=== PATIENT | male | born 1940 | race Caucasian/White ===

== ENCOUNTER → 2016-10-06 | Outpatient (CLI) | payer OTHER, MEDICARE | LOC: BMCIMAGING 15:46 | PROVIDERS: ATTEND Internal Medicine | DX: M51.36 Other intervertebral disc degeneration, lumbar region (principal); M46.96 Unspecified inflammatory spondylopathy, lumbar region; M46.97 Unspecified inflammatory spondylopathy, lumbosacral region; I70.0 Atherosclerosis of aorta ==

== ENCOUNTER → 2016-10-25 | Outpatient (CLI) | payer OTHER, MEDICARE | LOC: FIMAGING 15:25 | PROVIDERS: ATTEND Internal Medicine | DX: M48.06 Spinal stenosis, lumbar region (principal); M46.96 Unspecified inflammatory spondylopathy, lumbar region; M51.36 Other intervertebral disc degeneration, lumbar region ==

== ENCOUNTER → 2017-07-11 | Outpatient (CLI) | payer OTHER, MEDICARE | LOC: BHFA 15:30 | PROVIDERS: ATTEND Internal Medicine Cardiovascular Disease | DX: I73.9 Peripheral vascular disease, unspecified (principal) ==

== ENCOUNTER → 2018-01-07 | Outpatient (CLI) | payer OTHER, MEDICARE | LOC: BHFA 15:30 | PROVIDERS: ATTEND Internal Medicine Cardiovascular Disease | DX: R06.02 Shortness of breath (principal); R60.9 Edema, unspecified; I25.10 Atherosclerotic heart disease of native coronary artery without angina pectoris; I11.9 Hypertensive heart disease without heart failure; I43 Cardiomyopathy in diseases classified elsewhere ==

== ENCOUNTER 2018-02-20 07:30 | Inpatient (IN) | payer OTHER, MEDICARE ==
[2018-05-06] MEDS ORDERED: ceFAZolin 2 GM/DEXTROSE 100 ML IV ONE (09:40)
[2018-05-06] MEDS ORDERED: ACETAMINOPHEN 500 MG TAB PO ONE (09:40)
[2018-05-06] MEDS ORDERED: LR 1,000 ML IV ONE (09:40)
[2018-05-06] MEDS ORDERED: GABAPENTIN 300 MG CAP PO ONE (09:40)
[2018-05-06] MEDS ORDERED: DEXMEDETOMIDINE HCL 400 MCG in NS 100 ML IV SCH (10:00)
--- NOTE | 2018-05-06 10:29 | PDANEPAE ---
ANE History of Present Illness 78 y/o male with multiple medical problems here for back surgery due to back pain. ANE Past Medical History - Cardiovascular History Hx Hypertension: Yes Hx Arrhythmias: Yes Hx Chest Pain: Yes Hx Coronary Artery / Peripheral Vascular Disease: Yes Hx CHF / Valvular Disease: Yes Hx Palpitations: No Cardiovascular History Comment: CAD, multiple stents, in-stent thrombosis, restented now on Plavix. Hx of a-fib, failed ablation, paroxysmal. high cholesterol - Pulmonary History Hx COPD: No Hx Asthma/Reactive Airway Disease: No Hx Recent Upper Respiratory Infection: No Hx Oxygen in Use at Home: No Hx Sleep Apnea: Yes Sleep Apnea Screening Result - Last Documented: Positive Pulmonary History Comment: KEVIN positive, uses Cpap. Longtime cigar smoker. Quit for surgery. - Neurologic History Hx Cerebrovascular Accident: Yes Hx Seizures: No Neurologic History Comment: Hx of TIA, affected left hand. 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 Spinal stenosis - Endocrine History Hx Diabetes: No Obesity: yes, mild - Renal History Hx Renal Disorders: Yes Renal History Comment: overactive bladder - Liver History Hx Hepatic Disorders: No - Neurological & Psychiatric Hx Hx Neurological and Psychiatric Disorders: No - Cancer History Hx Cancer: No - Congenital Disorder History Hx Congenital Disorders: No - GI History Hx Gastrointestinal Disorders: Yes Gastrointestinal History Comment: GERD - Other Health History Other Health History: wears hearing aids. wears glasses. hx of psoriasis, no outbreak currently. takes cialis for erectile dysfunction. pain in bilat knees , L>R - Chronic Pain History Chronic Pain: Yes (bilat knees, L>R) - Surgical History Prior Surgeries: polyp removal near stomach. cardiac stenting ANE Review of Systems Review of Systems: - Exercise capacity METS (RN): 2 METS ANE Patient History - Allergies Allergies/Adverse Reactions: levofloxacin [From Levaquin] Allergy (Verified 05/02/18 13:27) issues with achilles tendon nifedipine [Nifedipine] Allergy (Verified 05/02/18 13:27) skin peeling, sloughing - Home Medications Home Medications: Apixaban [Eliquis] 5 mg PO BID 12/01/10 [Last Taken 04/29/18] Carbidopa/Levodopa 25/100Mg [Sinemet 25/100 MG (*)] 1 tab PO TIDMEAL 12/01/10 [ Last Taken 05/06/18] Clopidogrel Bisulfate [Plavix (*)] 75 mg PO HS 12/01/10 [Last Taken 04/29/18] Losartan Potassium [Cozaar 50 mg (*)] 50 mg PO DAILY 12/01/10 [Last Taken ] Mirabegron [Myrbetriq] 50 mg PO DAILY 12/01/10 [Last Taken 05/05/18] Nitroglycerin [Nitrostat 0.4 mg (*)] 0.4 mg SL Q5M PRN 12/01/10 [Last Taken Unknown] Rosuvastatin Calcium [Crestor 40mg (*)] 40 mg PO HS 12/01/10 [Last Taken ] Ferrous Sulfate [Ferrous Sulf 325 MG (*)] 325 mg PO DAILY 06/28/16 [Last Taken 04/29/18] Glucosamine/Chondroitin [Glucosamine/Chondroitin (*)] 1 each PO BID 06/28/16 [ Last Taken 04/29/18] Pantoprazole Sodium [Protonix 40mg (*)] 40 mg PO DAILY 06/28/16 [Last Taken ] Fluticasone Nasal [Flonase Nasal [place] (RX)] 2 sprays NASAL DAILY 01/22/18 [ Last Taken 05/05/18] Furosemide [Lasix 40 MG (*)] 40 mg PO DAILY 01/22/18 [Last Taken 05/05/18] Metoprolol Tartrate [Lopressor 50 mg (*)] 50 mg PO HS 01/22/18 [Last Taken 05/05] Rivastigmine Tartrate [Rivastigmine] 1.5 mg PO BIDMEAL 01/22/18 [Last Taken Unknown] Ascorbic Acid [Vitamin C 500 mg (*)] 500 mg PO DAILY 05/02/18 [Last Taken ] Docusate Sodium [Colace 100 MG (*)] 400 mg PO DAILY 05/02/18 [Last Taken Unknown ] Herbals/Supplements -Info Only 1 each PO DAILY 05/02/18 [Last Taken 04/29/18] [place]-3 Fatty Acids [Fish Oil 1000 mg (*)] 1,000 mg PO HS 05/02/18 [Last Taken 04/29/18] Tadalafil [Cialis] 2.5 mg PO DAILY 05/02/18 [Last Taken 05/04/18] Testosterone IM [Testosterone 100mg/ml IM inj (*)] 300 mg IM Q21D 05/02/18 [ Last Taken 04/29/18] - Smoking Hx Smoking Status: Former smoker - Family Anes Hx Family Hx Anesthesia Complications: none ANE Labs/Vital Signs - Vital Signs Height: 172.72 cm Weight: 98.883 kg ANE Physical Exam - Airway Neck exam: decreased ROM Mallampati Score: Class 3 Mouth exam: poor dentition - Pulmonary Pulmonary: clear to auscultation - Cardiovascular Cardiovascular: regular rate and rhythym - ASA Status ASA Status: IV ANE Anesthesia Plan Lines/Monitors: arterial line
--- NOTE | 2018-05-06 11:35 | PDHPUP ---
History & Physical Update H&P update statement: This history and physical update is based on an assessment of the patient which was completed after admission or registration (within 24 hours), but prior to the surgery/procedure. H&P update: H&P reviewed & patient examined, no change in patient's condition since H&P completed
[2018-05-06] MEDS ORDERED: CHLORHEXIDINE GLUC HIBICLENS 118 ML BTL TP ONE (12:12)
[2018-05-06] MEDS ORDERED: BUPIVACAINE 0.25% 30 ML SDV ONE ×2 (12:13→12:41)
[2018-05-06] MEDS ORDERED: EPINEPHrine 1 MG/ML INJ ONE (12:13)
[2018-05-06] MEDS ORDERED: BACITRACIN 50,000 UNITS/10 ML SYR IRR ONE ×2 (12:13→12:14)
[2018-05-06] MEDS ORDERED: THROMBIN (BOVINE) 20,000 UNIT VIAL TP ONE (12:23)
[2018-05-06] MEDS ORDERED: PROPOFOL/EMULSION 500 MG/50 ML BOTTLE IV ONE (12:24)
[2018-05-06] MEDS ORDERED: fentaNYL 100 MCG/2 ML INJ ONE ×2 (12:25→17:47)
[2018-05-06] MEDS ORDERED: PROPOFOL 200 MG/20 ML VIAL ONE ×2 (12:40→15:30)
[2018-05-06] MEDS ORDERED: oxyCODONE IR 5 MG TAB PO PRN (13:26)
[2018-05-06] MEDS ORDERED: LACTULOSE 20 GM/30 ML UDCUP PO PRN (13:26)
[2018-05-06] MEDS ORDERED: BISACODYL 10 MG SUPP PR PRN (13:26)
[2018-05-06] MEDS ORDERED: diphenhydrAMINE 25 MG CAP PO PRN (13:26)
[2018-05-06] MEDS ORDERED: MAGNESIUM HYDROXIDE 30 ML UDCUP PO PRN (13:26)
[2018-05-06] MEDS ORDERED: ONDANSETRON 4 MG/2 ML VIAL IVP PRN (13:26)
[2018-05-06] MEDS ORDERED: ONDANSETRON DISINTEGRATING 4 MG TAB PO PRN (13:26)
[2018-05-06] MEDS ORDERED: TESTOSTERONE IM 100 MG/ML SYRINGE IM SCH (13:45)
[2018-05-06] MEDS ORDERED: LABETALOL HCL 5 MG/ML 20 ML MDV IVP PRN (15:59)
[2018-05-06] MEDS ORDERED: LR 500 ML IV PRN (15:59)
[2018-05-06] MEDS ORDERED: NALOXONE HCL 0.4 MG/ML INJ IVP PRN (15:59)
[2018-05-06] MEDS ORDERED: PROMETHAZINE HCL 25 MG/ML INJ IVP PRN (15:59)
[2018-05-06] MEDS ORDERED: MEPERIDINE 25 MG/0.5 ML AMP IVP PRN (15:59)
--- NOTE | 2018-05-06 17:01 | POSTOPPROG ---
Post Op Note Date of Operation: 05/06/18 Surgeon: Hector Grijalva Dry House Tender: Hailey Nagel NP Anesthesiologist: Dr Manley Anesthesia: GET(General Endotracheal) Pre-op Diagnosis: Lumbar stenosis Procedure: L4-5 TLIF Inf/Abcess present in the surg proc area at time of surgery?: No Depth: Deep Incisional (Fascial) EBL: 100-500 Total fluids administered: see anesthesia Complications: none Drains: George Love Date of Surgery: 05/06/18 Post Op Day: 0 Assessment/Plan: Assessment: 78 yr old M s/p L4-5 TLIF for lower back pain and left>right leg pain Plan: -Admit Med surg -Hospitalist consulted to help with medical management during hospital stay -PT/OT -Post op xrays in am -Licensed Land Surveyor to fit with lumbar brace -Ok to get oob prior to arrival of brace -JHON bulb suction -Call with questions/concerns Subjective: waking up in pacu Objective: waking up in pacu no facial droop MINER x4 5/5 BUE, BLE Sensation intact to light touch BLE JHON patent Dressing CDI Appropriate Neuro Check Frequency Ordered: Yes
--- NOTE | 2018-05-06 17:09 | POSTANESTH ---
Post Anesthetic Evaluation Respiratory Status: Normal, Stable Level of Consciousness/Mental Status: Can Participate in Eval Pain Control: Adequate, Prn Tx Ordered Nausea/Vomiting Control: Adequate, Prn Tx Ordered Complications Possibly Related to Anesthesia: None Noted
[2018-05-06] MEDS ORDERED: METHOCARBAMOL 750 MG TAB ONE (17:51)
[2018-05-06] MEDS: fentaNYL 100 MCG/2 ML INJ IVP PRN ×2 (17:55→18:13)
--- NOTE | 2018-05-06 18:10 | GOP ---
DATE OF OPERATION: 05/06/2018 SURGEON: Darnell Grijalva MD NEUROSURGEON: Darnell Grijalva MD DIRECTOR FINANCIAL ANALYSIS: Hailey Nagel, nurse practitioner PREOPERATIVE DIAGNOSIS: Lumbar spondylolisthesis with stenosis L4-5. POSTOPERATIVE DIAGNOSIS: Lumbar spondylolisthesis with stenosis L4-5. PROCEDURE PERFORMED: L4-5 intervertebral arthrodesis and posterolateral arthrodesis with decompressi on bilaterally (18963), posterior nonsegmental instrumentation across a single interspace L4-5 (65935 ), spinal stereotactic, microscope, same incision bone graft harvest, placement of biomechanical inte rvertebral device L4-5 (09673). FINDINGS: Are consistent with the diagnosis. ESTIMATED BLOOD LOSS: 150 cc. INDICATIONS: The patient is an elderly gentleman who has had a long history of symptoms in his low b ack, radiating down both legs, with the left being worse than the right, and his MRI demonstrated spo ndylolisthesis at L4-5 and severe stenosis at that level. I suggested a single-level arthrodesis and fusion. The risk of adjacent segment disease, nerve injury, spinal fluid leak, continued symptoms, pseudoarthrosis, nerve injury, and failure to improve was discussed. He knew the risks and he did wa nt to proceed. He had been a smoker prior to surgery and he was able to successfully quit smoking pr ior to surgery and was warned about the risks of smoking following surgery. We encouraged him to not smoke for at least this year after the surgery to try to improve his chances of javier union. DESCRIPTION OF PROCEDURE: The patient was taken to the operating room, placed in a supine position. General anesthesia was begun. He was flipped prone onto the George table. Care was taken to pad a ll points of contact. His back was sterilely prepped and draped. Before we began the surgery, shaylee er, and in fact, before draping, we sterilely prepped him, but before draping the patient, the anesth esiologist was unhappy with the tidal volume she was getting, so we elected to flip him back onto his hospital bed to ensure the ET tube was in good position. It did appear to be in good position and t his maneuver seemed to solve the problem. He was then positioned back on the operating room table on ce again. Care was taken to pad all points of contact, and this time, we did not have a problem with our tidal volume. He was sterilely prepped and draped. We made a midline incision, it was about 7 cm in length. He was a very large man. The subcutaneous tissue was dissected using Bovie cautery down through the fascia and a subperiosteal dissection was m glory down the L4-5 lamina. Self-retaining retractor was placed. A localizing x-ray was taken. We de nuded the L4-5 facet joints. We attached the Stealth reference frame to the L4 spinous process. We performed an O-arm spin and using frameless Stealth stereotaxy, we placed pedicle screws bilaterally at L4 and L5. They were in excellent position. We confirmed their position with another O-arm spin. They all stimulated at acceptable levels. We took a 35 mm eladia on the right and a 40 mm eladia on the left, distracted only slightly at L4-5 and go t good distraction. We then final tightened the cap screws according to company specification, and t hen removed all the soft tissue of the bone from the L4-5 spinous processes, and then harvested the L 4 spinous process and lamina for autologous grafting purposes. Under the operating microscope, we pe rformed bilateral decompression at L4-5. There was very severe stenosis and it was stuck to his nerv e roots on each side. We took care to carefully remove the hypertrophic facets and their areas of ad hesion to the thecal sac, and we got a great decompression. There was an hourglass appearance of the thecal sac at the level of the disk. We had a wonderful decompression. We swept the L5 nerve on the left side medially and removed the disk and the cartilaginous endplates completely at the L4-5 intervertebral space. We then sized and chose a 7 x 28 mm expandable device. We packed bone autograft into the disk space at L4-5, followed by the device, and it was expanded un chani fluoroscopic guidance. We put 1 mg of BMP in the device, 1 mg posterolaterally. We then placed a subfascial drain, and then closed the incision in multiple layers using Vicryl sutures. Steri-Stri ps were applied to skin. The patient was reversed from anesthesia, extubated, and transferred to recovery room in stable condi tion. There were no complications. COMPLICATIONS: None. INSTRUMENTATION USED: Medtronic 5.5 mm Solera pedicle screws with a titanium eladia, and we used an exp andable Elevate 7 x 28 mm cage at L4-5 and 2 mg of bone morphogenic protein. /[id number]/MODL
[2018-05-06] MEDS: METHOCARBAMOL 750 MG TAB PO PRN (18:12)
[2018-05-06] MEDS: NS 1,000 ML IV SCH (18:51)
--- NOTE | 2018-05-06 21:06 | PDHOSCONS ---
History and Physical - Chief Complaint post op L4-L5 fusion - History of Present Illness This is a consult at request of Dr. Carlos Grijalva for medical management and evaluation of chronic medical issues. Patient is a 78 yo M with PMH of CAD, KEVIN, CVA and Binswanger syndrome with chronic gait instability admitted for L4-L5 fusion for lumbar spondylolisthesis and lumbar stenosis. Patient seen in the post operative setting and states he is doing well now but was having issues with delusions in the post op setting. His pain is largely controlled. He notes that he is hungry but otherwise has no complaints. He feels he is breathing well, no chest pain. History Information - Allergies/Home Medication List Allergies/Adverse Reactions: levofloxacin [From Levaquin] Allergy (Verified 05/02/18 13:27) issues with achilles tendon nifedipine [Nifedipine] Allergy (Verified 05/02/18 13:27) skin peeling, sloughing Home Medications: Apixaban [Eliquis] 5 mg PO BID 12/01/10 [Last Taken 04/29/18] Carbidopa/Levodopa 25/100Mg [Sinemet 25/100 MG (*)] 1 tab PO TIDMEAL 12/01/10 [ Last Taken 05/06/18] Clopidogrel Bisulfate [Plavix (*)] 75 mg PO HS 12/01/10 [Last Taken 04/29/18] Losartan Potassium [Cozaar 50 mg (*)] 50 mg PO DAILY 12/01/10 [Last Taken ] Mirabegron [Myrbetriq] 50 mg PO DAILY 12/01/10 [Last Taken 05/05/18] Nitroglycerin [Nitrostat 0.4 mg (*)] 0.4 mg SL Q5M PRN 12/01/10 [Last Taken Unknown] Rosuvastatin Calcium [Crestor 40mg (*)] 40 mg PO HS 12/01/10 [Last Taken ] Ferrous Sulfate [Ferrous Sulf 325 MG (*)] 325 mg PO DAILY 06/28/16 [Last Taken 04/29/18] Glucosamine/Chondroitin [Glucosamine/Chondroitin (*)] 1 each PO BID 06/28/16 [ Last Taken 04/29/18] Pantoprazole Sodium [Protonix 40mg (*)] 40 mg PO DAILY 06/28/16 [Last Taken ] Fluticasone Nasal [Flonase Nasal [place] (RX)] 2 sprays NASAL DAILY 01/22/18 [ Last Taken 05/05/18] Furosemide [Lasix 40 MG (*)] 40 mg PO DAILY 01/22/18 [Last Taken 05/05/18] Metoprolol Tartrate [Lopressor 50 mg (*)] 50 mg PO HS 01/22/18 [Last Taken 05/05] Rivastigmine Tartrate [Rivastigmine] 1.5 mg PO BIDMEAL 01/22/18 [Last Taken Unknown] Ascorbic Acid [Vitamin C 500 mg (*)] 500 mg PO DAILY 05/02/18 [Last Taken ] Docusate Sodium [Colace 100 MG (*)] 400 mg PO DAILY 05/02/18 [Last Taken Unknown ] Herbals/Supplements -Info Only 1 each PO DAILY 05/02/18 [Last Taken 04/29/18] [place]-3 Fatty Acids [Fish Oil 1000 mg (*)] 1,000 mg PO HS 05/02/18 [Last Taken 04/29/18] Tadalafil [Cialis] 2.5 mg PO DAILY 05/02/18 [Last Taken 05/04/18] Testosterone IM [Testosterone 100mg/ml IM inj (*)] 300 mg IM Q21D 05/02/18 [ Last Taken 04/29/18] I have personally reviewed and updated: family history, medical history, social history, surgical history - Past Medical History atrial fibrillation, coronary artery disease, CHF, CVA, GERD, hypertension, hyperlipidemia Additional medical history: PAD. chronic venous insufficiency. Binswanger syndrome with gait instability. psoriasis. KEVIN - Surgical History Reports: spinal surgery, coronary stent Additional surgical history: lipoma surgery - Family History Positive for: non-pertinent - Social History Smoking Status: Former smoker Alcohol Use: Rarely Drug Use: None Review of Systems Review of Systems: ROS: 10pt was reviewed & negative except for what was stated in HPI & below Physical Exam Physical Exam: Temp Pulse Resp BP Pulse Ox 36.7 C 84 18 100/50 L 95 05/06/18 20:51 05/06/18 20:51 05/06/18 20:51 05/06/18 20:51 05/06/18 20:51 O2 (L/minute) 2 Constitutional: no apparent distress, appears nourished Eyes: PERRL, anicteric sclera Ears, Nose, Mouth, Throat: moist mucous membranes, hearing normal Cardiovascular: regular rate and rhythym, no murmur, rub, or gallop, No edema Respiratory: no respiratory distress, no rales or rhonchi, clear to auscultation Gastrointestinal: normoactive bowel sounds, soft, non-tender abdomen Genitourinary: no bladder tenderness Skin: warm, normal color Musculoskeletal: full muscle strength Neurologic: AAOx3 Psychiatric: interacting appropriately, not anxious, not encephalopathic Assessment & Plan Assessment: 78 yo M s/p L4-L5 fusion for lumbar spondylolisthesis/lumbar stenosis # s/p L4-L5 fusion: patient doing well in post op setting. pt/ot to be involved. # post operative delirium: will monitor but seems to have resolved, likely due to anesthetic effect # CAD: with hx of multiple prior stents, was seen by cardiology pre operatively , has no current complaints to suggest active issues, will resume home medications including asa when cleared by neurosurgery. cardiology was ok with those being held perioperatively # Binswanger syndrome: with chronic gait instability and patient using a wheelchair significantly pre op, pt/ot to be involved # chronic medical issues: htn, hld, kevin, hx of cva, a fib--no current issues, will monitor # IP status, patient new to my care, old records reviewed and summarized as above Medicine will continue to follow while patient is in house, thank you for the consultation.
[2018-05-06] MEDS: ceFAZolin 2 GM/DEXTROSE 100 ML IV SCH (21:34)
[2018-05-06] MEDS: ACETAMINOPHEN 500 MG TAB PO SCH ×2 (21:34→23:16)
[2018-05-06] MEDS: SENNOSIDES/DOCUSATE SODIUM TAB PO SCH (21:34)
[2018-05-06] MEDS: FAMOTIDINE 20 MG TAB PO SCH (21:34)
[2018-05-06] MEDS: METOPROLOL TARTRATE 50 MG TAB PO SCH (21:34)
[2018-05-06] MEDS: ROSUVASTATIN CALCIUM 40 MG TAB PO SCH (21:34)
[2018-05-06] MEDS: RIVASTIGMINE TARTRATE 1.5 MG CAP PO SCH (23:17)
[2018-05-06] MEDS: CARBIDOPA/LEVODOPA 25 MG/100 MG TAB PO SCH (23:17)
[2018-05-07 05:38] LABS: PLATELET COUNT 226 10^3/uL (150-400)
[2018-05-07] MEDS: ceFAZolin 2 GM/DEXTROSE 100 ML IV SCH (05:46)
[2018-05-07] MEDS: ACETAMINOPHEN 500 MG TAB PO SCH ×3 (05:46→21:32)
[2018-05-07] MEDS: DOCUSATE SODIUM 100 MG CAP PO SCH (08:29)
[2018-05-07] MEDS: FUROSEMIDE 40 MG TAB PO SCH (08:30)
[2018-05-07] MEDS: PANTOPRAZOLE SODIUM 40 MG TAB PO SCH (08:31)
[2018-05-07] MEDS: LOSARTAN POTASSIUM 50 MG TAB PO SCH (08:31)
[2018-05-07] MEDS: FERROUS SULFATE 325 MG TAB PO SCH (08:32)
[2018-05-07] MEDS: SENNOSIDES/DOCUSATE SODIUM TAB PO SCH ×2 (08:32→21:32)
[2018-05-07] MEDS: FAMOTIDINE 20 MG TAB PO SCH ×2 (08:32→21:32)
[2018-05-07] MEDS: POLYETHYLENE GLYCOL 3350 17 GM PKT PO PRN (08:33)
--- NOTE | 2018-05-07 08:38 | NEUSURGPN ---
Assessment/Plan: Assessment: 78 yr old M s/p L4-5 TLIF for lower back pain and left>right leg pain POD1 Plan: -Hospitalist consulted to help with medical management during hospital stay -PT/OT -Pulmonary toilet, Encourage IS -Post op xrays pending -Emergency Room Technician to fit with lumbar brace -Ok to get oob with brace -JHON bulb suction, will d/c today -Call with questions/concerns Subjective: low back pain, right leg stiffness Objective: waking up in pacu MINER x4 5/5 BUE, BLE Sensation intact to light touch BLE JHON serosanguineous Dressing CDI Catheter Insertion Date: 05/06/18 - Physician Discussed Patient with DrBirgit: Rudi Neurosurgery Physical Exam - Vitals, I&O, Labs I and O 05/06/18 05/07/18 05/08/18 05:59 05:59 05:59 Intake Total 3345 Output Total 820 Balance 2525 Weight 98.883 kg 98.883 kg Intake: Oral (ml) 975 IV Intake (ml) 1500 IV Infused (ml) 870 Ns 1,000 ml @ 75 mls/hr 650 IV CONT BILLY Rx#: [id number] ceFAZolin 2 GM/DEXTROSE 220 100 ml @ 200 mls/hr IV Q8H BILLY Rx#:[id number] Output: Urine (ml) 450 Catheter 450 Estimated Blood Loss (ml) 150 JHON Drain Output (ml) 220 Back George Love 220 Vital Signs Temp Pulse Resp BP Pulse Ox 37.0 C 69 12 95/65 L 95 05/07/18 07:30 05/07/18 07:30 05/07/18 07:30 05/07/18 07:30 05/07/18 07:30 Laboratory Results 05/07/18 05:10 05/07/18 05:10 ICD10 Worksheet Patient Problems: Problems Problem Status Onset Atherosclerotic heart disease of [place] coronary artery without angina pectoris Acute Atrial fibrillation Acute Bradycardia Acute
[2018-05-07] MEDS: RIVASTIGMINE TARTRATE 1.5 MG CAP PO SCH ×2 (08:45→18:03)
[2018-05-07] MEDS: FLUTICASONE NASAL 120 SPRAYS/16 GM MDI NS SCH (08:46)
[2018-05-07] MEDS: CARBIDOPA/LEVODOPA 25 MG/100 MG TAB PO SCH ×3 (08:46→18:03)
[2018-05-07] MEDS: NS 1,000 ML IV SCH (08:48)
[2018-05-07] MEDS: METHOCARBAMOL 750 MG TAB PO PRN ×2 (09:13→14:03)
--- NOTE | 2018-05-07 11:35 | PDMN ---
Medical Necessity Medical necessity: 78 [place] 41988[place] [facility] [place], [place] Only
--- NOTE | 2018-05-07 12:54 | HOSPPROG ---
Hospitalist Progress Note Assessment/Plan: 78 yo M s/p L4-L5 fusion for lumbar spondylolisthesis/lumbar stenosis. First encounter, chart reviewed. D/W CM. # s/p L4-L5 fusion: patient doing well in post op setting pt/ot to be involved decreased strength and mobility # post operative delirium: resolved will monitor likely due to anesthetic effect # CAD: with hx of multiple prior stents was seen by cardiology pre operatively has no current complaints to suggest active issues will resume home medications including asa when ok with neurosurgery cardiology was ok with those being held perioperatively # Binswanger syndrome: with chronic gait instability patient using a wheelchair significantly pre op pt/ot to be involved rec SNF # chronic medical issues: htn, hld, jose, hx of cva, a fib--no current issues, will monitor # IP status, patient new to my care, old records reviewed and summarized as above Medicine will continue to follow while patient is in house, thank you for the consultation. Rec SNF rehab at time of DC pt not safe to mobilize await PT/OT notes Subjective: Up in bed. Still having some back pain. at bedside. Objective: Vital Signs Temp Pulse Resp BP Pulse Ox 37.0 C 60 12 104/55 L 96 05/07/18 11:29 05/07/18 11:29 05/07/18 11:29 05/07/18 11:29 05/07/18 11:29 Laboratory Results 05/07/18 05:10 05/07/18 05:10 05/06/18 05/07/18 05/08/18 05:59 05:59 05:59 Intake Total 3345 200 Output Total 820 25 Balance 2525 175 - Physical Exam Constitutional: appears nourished, obese, uncomfortable Eyes: PERRL, anicteric sclera, EOMI Ears, Nose, Mouth, Throat: moist mucous membranes, hearing normal, ears appear normal Cardiovascular: irregularly irregular, No JVD, No tachycardia, No edema Respiratory: no respiratory distress, no rales or rhonchi, reduced air movement Gastrointestinal: normoactive bowel sounds, No tenderness, No ascites Skin: warm, normal color, No mottled Musculoskeletal: pain with ROM, muscular tenderness, abnormal gait, generalized weakness Neurologic: AAOx3 Psychiatric: not anxious, not encephalopathic, thought process linear, poor judgement ICD10 Worksheet Patient Problems: Problems Problem Status Onset Atherosclerotic heart disease of [place] coronary artery without angina pectoris Acute Atrial fibrillation Acute Bradycardia Acute
[2018-05-07] MEDS: Tadalafil [Cialis] 2.5 MG PO SCH (13:58)
[2018-05-07] MEDS: Mirabegron [Myrbetriq] 50 MG PO SCH (14:00)
--- NOTE | 2018-05-07 14:45 | ASMTCMCOM ---
CM Note CM Note Notes: Pt had planned surgery for lumbar stenosis and DJD. PT/OT evals pending. Pt was pre-arranged with [facility] but pt thinks he may want SNF d/c. Spoke with pt and , they request a referral to [facility] SNF, referral sent in [employer]. CM to follow. Date Signed: 05/07/2018 02:44 PM Electronically Signed By:MAINOR Green
[2018-05-07] MEDS ORDERED: NS 500 ML IV ONE (17:32)
[2018-05-07] MEDS: METOPROLOL TARTRATE 50 MG TAB PO SCH (21:32)
[2018-05-07] MEDS: ROSUVASTATIN CALCIUM 40 MG TAB PO SCH (21:32)
[2018-05-08] MEDS: ACETAMINOPHEN 500 MG TAB PO SCH ×3 (05:48→21:08)
--- NOTE | 2018-05-08 07:43 | SOAPPROG ---
SOAP Progress Note Assessment/Plan: Assessment: 78 yo male POD #2 sp L4/5 TLIF Doing "better" today. Plan: LSO when OOB Continue JHON Pt/OT Rehab eval 05/08/18 07:40 Subjective: sitting up eating breakfast. Pain controlled. He thinks his legs feel better. No new issues Objective: Vital Signs Temp Pulse Resp BP Pulse Ox 37.0 C 53 L 17 133/65 H 94 05/08/18 07:36 05/08/18 07:36 05/08/18 07:36 05/08/18 07:36 05/08/18 07:36 Laboratory Results 05/07/18 05:10 05/07/18 05:10 05/07/18 05/08/18 05/09/18 05:59 05:59 05:59 Intake Total 3345 400 350 Output Total 820 1425 Balance 2525 -1025 350 Dressing : CDI JHON: 25 ml Neuro: MINER, sens +LT ambulatory in LSO Post op xrays show well positioned hardware ICD10 Worksheet Patient Problems: Problems Problem Status Onset Atherosclerotic heart disease of [place] coronary artery without angina pectoris Acute Atrial fibrillation Acute Bradycardia Acute
[2018-05-08] MEDS: PANTOPRAZOLE SODIUM 40 MG TAB PO SCH (08:41)
[2018-05-08] MEDS: RIVASTIGMINE TARTRATE 1.5 MG CAP PO SCH ×2 (08:42→18:16)
[2018-05-08] MEDS: FUROSEMIDE 40 MG TAB PO SCH (08:42)
[2018-05-08] MEDS: FERROUS SULFATE 325 MG TAB PO SCH (08:43)
[2018-05-08] MEDS: FAMOTIDINE 20 MG TAB PO SCH ×2 (08:43→22:33)
[2018-05-08] MEDS: CARBIDOPA/LEVODOPA 25 MG/100 MG TAB PO SCH ×3 (08:43→18:16)
[2018-05-08] MEDS: DOCUSATE SODIUM 100 MG CAP PO SCH (08:52)
[2018-05-08] MEDS: SENNOSIDES/DOCUSATE SODIUM TAB PO SCH ×2 (08:53→21:05)
[2018-05-08] MEDS: FLUTICASONE NASAL 120 SPRAYS/16 GM MDI NS SCH (09:01)
[2018-05-08] MEDS: LOSARTAN POTASSIUM 50 MG TAB PO SCH (09:03)
[2018-05-08] MEDS: Mirabegron [Myrbetriq] 50 MG PO SCH ×2 (09:03→15:20)
[2018-05-08] MEDS: Tadalafil [Cialis] 2.5 MG PO SCH (09:04)
--- NOTE | 2018-05-08 11:49 | HOSPPROG ---
Hospitalist Progress Note Assessment/Plan: 78 yo M s/p L4-L5 fusion for lumbar spondylolisthesis/lumbar stenosis. D/W CM. # s/p L4-L5 fusion: patient doing ok in post op setting pt/ot decreased strength and mobility # post operative delirium: resolved will monitor likely due to anesthetic effect # CAD: with hx of multiple prior stents was seen by cardiology pre operatively has no current complaints to suggest active issues will resume home medications including asa when ok with neurosurgery cardiology was ok with those being held perioperatively # Binswanger syndrome: with chronic gait instability patient using a wheelchair significantly pre op pt/ot to be involved rec SNF # chronic medical issues: htn, hld, jose, hx of cva, a fib--no current issues, will monitor #Hypotension better responded to fluid meds held this morning #Hypoxemia multifactorial recently stopped smoking cigars partial fluid lasix given follow IS # IP status, Medicine will continue to follow while patient is in house, thank you for the consultation. Rec SNF rehab at time of DC pt not safe to mobilize Subjective: Up in the chair. Still having pain. Feels ok. Objective: Vital Signs Temp Pulse Resp BP Pulse Ox 37.0 C 53 L 17 133/65 H 94 05/08/18 07:36 05/08/18 07:36 05/08/18 07:36 05/08/18 07:36 05/08/18 07:36 Laboratory Results 05/07/18 05:10 05/07/18 05:10 05/07/18 05/08/18 05/09/18 05:59 05:59 05:59 Intake Total 3345 400 350 Output Total 820 1425 100 Balance 2525 -1025 250 - Physical Exam Constitutional: appears nourished, obese Eyes: PERRL, anicteric sclera Ears, Nose, Mouth, Throat: moist mucous membranes, hearing normal Cardiovascular: No JVD, No edema Respiratory: no respiratory distress, reduced air movement, rhonchi Gastrointestinal: No tenderness, No ascites Skin: warm, normal color Musculoskeletal: pain with ROM, muscular tenderness, generalized weakness Neurologic: AAOx3 Psychiatric: interacting appropriately, not anxious, not encephalopathic ICD10 Worksheet Patient Problems: Problems Problem Status Onset Atherosclerotic heart disease of [place] coronary artery without angina pectoris Acute Atrial fibrillation Acute Bradycardia Acute
[2018-05-08] MEDS: METHOCARBAMOL 750 MG TAB PO PRN (11:51)
--- NOTE | 2018-05-08 15:12 | ASMTCMCOM ---
CM Note CM Note Notes: Spoke with pt and , they do not want to consider [facility] inpatient rehab and want d/c to [facility]. D/c plan of care: [facility] SNF when medically stable. Date Signed: 05/08/2018 03:11 PM Electronically Signed By:MAINOR Green
[2018-05-08] MEDS: ROSUVASTATIN CALCIUM 40 MG TAB PO SCH (21:05)
[2018-05-08] MEDS: METOPROLOL TARTRATE 50 MG TAB PO SCH (21:06)
[2018-05-08] MEDS: POLYETHYLENE GLYCOL 3350 17 GM PKT PO PRN (21:09)
[2018-05-09] MEDS: ACETAMINOPHEN 500 MG TAB PO SCH (05:14)
--- NOTE | 2018-05-09 08:04 | NEUSURGPN ---
Assessment/Plan: 78 yo male POD #3 sp L4/5 TLIF Plan: LSO when OOB JHON drain is out Pt/OT TEDs, SCDs, lovenox DC to SNF today Pt seen and d/w Dr Grijalva Call NS with any issues Subjective: Pt resting in bed, states he is ready to go to SNF today. Thinks he is making some progress. Objective: AAOx3 NAD VSS MAEx4 Motor 5/5 BLE +LT Urinary Catheter in Place: No Catheter Insertion Date: 05/06/18 - Physician Discussed Patient with : Rudi Patient Seen by : Rudi Neurosurgery Physical Exam - Vitals, I&O, Labs I and O 05/08/18 05/09/18 05/10/18 05:59 05:59 05:59 Intake Total 400 850 Output Total 1425 1475 Balance -1025 -625 Weight 98.883 kg Intake: Oral (ml) 400 850 Output: Urine (ml) 1400 1475 Bedside Commode 125 Urinal 1400 1350 JHON Drain Output (ml) 25 Back George Love 25 Other: Intake Quantity Yes Yes Sufficient Number of Voids Incontinence 2 Urinal 2 2 Number of Stools Bedside Commode 1 Bladder Scan Volume (ml) Toilet 100 Vital Signs Temp Pulse Resp BP Pulse Ox 37.5 C 73 19 161/76 H 93 05/09/18 07:52 05/09/18 07:52 05/09/18 07:52 05/09/18 07:52 05/09/18 07:52 Laboratory Results 05/07/18 05:10 05/07/18 05:10 ICD10 Worksheet Patient Problems: Problems Problem Status Onset Atherosclerotic heart disease of [place] coronary artery without angina pectoris Acute Atrial fibrillation Acute Bradycardia Acute
[2018-05-09 08:08] VITALS: BP 142/70
--- NOTE | 2018-05-09 08:10 | PDIAF ---
- Diagnosis Code Status: Full Code - Medication Management Discharge Medications: electronically signed and located in the Home Medication List. PICC Care - Routine: N/A - Orders Services needed: Registered Nurse, Physical Therapy, Occupational Therapy Diet Recommendation: no restrictions on diet Diet Texture: Regular Texture Diet Additional Instructions: No bending/lifting/twisting wear brace when OOB 5-10lb weight limit Keep incision clean and dry OK to resume eliquis and plavix on 05/10/18 Follow up again in 2-3 weeks in clinic. Call to make appt @ [phone] Call office with any issues - Follow Up Care Current Providers and Referrals: Layton Arreaga MD [Primary Care Provider] - Hector Grijalva MD [Medical Doctor] -
[2018-05-09] MEDS ORDERED: ENOXAPARIN 40 MG/0.4 ML SYR SC SCH (09:00)
[2018-05-09] MEDS: RIVASTIGMINE TARTRATE 1.5 MG CAP PO SCH (10:11)
[2018-05-09] MEDS: FAMOTIDINE 20 MG TAB PO SCH (10:12)
[2018-05-09] MEDS: LOSARTAN POTASSIUM 50 MG TAB PO SCH (10:12)
[2018-05-09] MEDS: PANTOPRAZOLE SODIUM 40 MG TAB PO SCH (10:14)
[2018-05-09] MEDS: FERROUS SULFATE 325 MG TAB PO SCH (10:14)
[2018-05-09] MEDS: SENNOSIDES/DOCUSATE SODIUM TAB PO SCH (10:14)
[2018-05-09] MEDS: FUROSEMIDE 40 MG TAB PO SCH (10:15)
[2018-05-09] MEDS: Mirabegron [Myrbetriq] 50 MG PO SCH (10:16)
[2018-05-09] MEDS: DOCUSATE SODIUM 100 MG CAP PO SCH (10:18)
[2018-05-09] MEDS: Tadalafil [Cialis] 2.5 MG PO SCH (10:19)
[2018-05-09] MEDS: FLUTICASONE NASAL 120 SPRAYS/16 GM MDI NS SCH (10:19)
[2018-05-09] MEDS: CARBIDOPA/LEVODOPA 25 MG/100 MG TAB PO SCH ×2 (10:23→12:11)
--- NOTE | 2018-05-09 11:28 | ASMTLACE ---
LACE Length of stay for Answers: 4-6 days current admission Acuity / Level of Answers: Yes Care: Did the patient have an inpatient admission? Comorbidities - select Answers: Cerebrovascular disease all that apply (CVA, TIA, aneurysms, vasc ular dementia) Congestive heart failure Coronary Artery Disease Opioid dependence / Chronic pain Other Notes: HTN; GERD # of Emergency department Answers: 0 visits in the last 6 months Score: 17 Date Signed: 05/09/2018 11:27 AM Electronically Signed By:MAINOR Green
--- NOTE | 2018-05-09 11:30 | ASMTCMCOM ---
CM Note CM Note Notes: Pt medically stable for d/c to [facility]. Orders sent via Allscripts. Irina with [facility] scheduled wc transport for 12:30. Voicemail left for pt updating her. JL Mckinney to call report. Date Signed: 05/09/2018 11:29 AM Electronically Signed By:MAINOR Green
[2018-05-09] MEDS: METHOCARBAMOL 750 MG TAB PO PRN (12:11)
--- NOTE | 2018-05-09 13:29 | ASDISCHSUM ---
Discharge Information Plan Status:SNF Medically Cleared to Leave: Discharge Date:05/09/2018 01:13 PM CM D/C Disposition: ADT D/C Disposition:[facility] Facility Projected Discharge Date:05/09/2018 11:00 AM Transportation at D/C: Discharge Delay Reason: Follow-Up Date:05/09/2018 11:00 AM Discharge Slot: Final Diagnosis: Placement Information Referral Type:*Halfway/SNF Referral ID:[id number] Provider Name:[facility] Address 1:[address] [facility] Address 2: City:[place] Selection Factors: State:[place] Patient Contact Information Contact Name:KAREN Relationship: Address:[address] [place] [address] City:[place] Alternate Phone: State/Zip Code:[place] [address] Email: Financial Information Financial Class:Medicare Primary Plan Desc:MEDICARE INPATIENT Primary Plan Number:[id number] Secondary Plan Desc:[employer]/MDR SUPPLEMENT Secondary Plan Number:[id number] Assessment Information LACE LACE Length of stay for Answers: 4-6 days current admission Acuity / Level of Answers: Yes Care: Did the patient have an inpatient admission? Comorbidities - select Answers: Cerebrovascular disease all that apply (CVA, TIA, aneurysms, vasc ular dementia) Congestive heart failure Coronary Artery Disease Opioid dependence / Chronic pain Other Notes: HTN; GERD # of Emergency department Answers: 0 visits in the last 6 months Score: 17 Date Signed: 05/09/2018 11:27 AM Electronically Signed By:MAINOR Green [facility] CM Progress Note CM Note CM Note Notes: Pt had planned surgery for lumbar stenosis and DJD. PT/OT rajeev pending. Pt was pre-arranged with [facility] but pt thinks he may want SNF d/c. Spoke with pt and , they request a referral to [facility], referral sent in Allscripts. CM to follow. Date Signed: 05/07/2018 02:44 PM Electronically Signed By:MAINOR Green [facility] CM Progress Note CM Note CM Note Notes: Spoke with pt and , they do not want to consider [facility] inpatient rehab and want d/c to [facility]. D/c plan of care: [facility] when medically stable. Date Signed: 05/08/2018 03:11 PM Electronically Signed By:MAINOR Green [facility] CM Progress Note CM Note CM Note Notes: Pt medically stable for d/c to [facility]. Orders sent via Allscripts. Irina with [facility] scheduled wc transport for 12:30. Voicemail left for pt updating her. JL Mckinney to call report. Date Signed: 05/09/2018 11:29 AM Electronically Signed By:MAINOR Green Intervention Information Intervention Type:*IM-Signed Date of Service:05/09/2018 11:42 AM Patient Type:Inpatient Staff Member:Sheree Mena Hours: Discipline: Severity: Comment:
--- NOTE | 2018-05-11 21:57 | GDS ---
PRIMARY DIAGNOSIS: Lumbar stenosis. OPERATION/PROCEDURE: May 06, 2018, L4-5 transforaminal lumbar interbody fusion with Dr. Grijalva. HOSPITAL COURSE: The patient presented to [facility] on May 06, 2018, for an L4- 5 transforaminal lumbar interbody fusion with Dr. Grijalva. After operation, the patient was in stable condition and transferred from the OR to the PACU and then to the postsurgical floor. While on the floor, the patient received physical therapy and occupational therapy and pain management. All drain s and catheters were removed. The patient was in stable condition and subsequently discharged to a [facility] on May 09, 2018. The patient will follow up in the office in 2 weeks for postoperative visit. They have been instructed to contact our office with any questions or concerns . CONSULTS: Physical Therapy, Occupational Therapy, and hospitalist. COMPLICATIONS: None. DISCHARGE CONDITION: Stable. DISCHARGE MEDICATIONS: Please see medication reconciliation for details. DISCHARGE INSTRUCTIONS: Patient was instructed to avoid any bending or twisting at the waist. He is to avoid lifting greater than 10 pounds for the next 2 weeks. The patient was fitted with a lumbar brace through [employer], which he will wear any time he is out of bed. It is okay for the patient to sh ower on postoperative day 3. Patient may remove outer dressing on postoperative day 3. Leave the [facility]Strips in place. Patient to avoid any submersion of his incision for the next 2-3 weeks. The ailin mariee is scheduled to follow up in our office in 2 weeks for postoperative visit and he has been inst ructed to call with any questions or concerns prior to his appointment. /[id number]/MODL
[2018-05-20] MEDS ORDERED: TESTOSTERONE IM 100 MG/ML SYRINGE IM SCH (09:00)
== END 2018-05-09 13:13 | DRG 454 ==
LOC: F3E 05-06 09:33 → F3N 05-06 13:21
PROVIDERS: ADMIT Neurological Surgery; ATTEND Neurological Surgery
DX: M43.16 Spondylolisthesis, lumbar region (principal); M48.061 Spinal stenosis, lumbar region without neurogenic claudication; I25.10 Atherosclerotic heart disease of native coronary artery without angina pectoris; I67.3 Progressive vascular leukoencephalopathy; M54.9 Dorsalgia, unspecified; I48.0 Paroxysmal atrial fibrillation; I87.2 Venous insufficiency (chronic) (peripheral); G47.33 Obstructive sleep apnea (adult) (pediatric); R26.81 Unsteadiness on feet; K21.9 Gastro-esophageal reflux disease without esophagitis; I10 Essential (primary) hypertension; E78.5 Hyperlipidemia, unspecified; R41.0 Disorientation, unspecified; Z95.5 Presence of coronary angioplasty implant and graft; Z86.73 Personal history of transient ischemic attack (TIA), and cerebral infarction without residual deficits
CPT/HCPCS: 97116-GP; 97162-GP; 97166-GO; 97530-GP; 97535-GO; C1713; G8978-GP-CL; G8979-GP-CJ; G8987-GO-CL; G8988-GO-CJ; G8989-GO-CL; J0171; J0690; J1071; J1650; J2704; J3010

== ENCOUNTER → 2018-02-25 | Outpatient (CLI) | payer OTHER, MEDICARE | LOC: BHFA 13:15 | PROVIDERS: ATTEND Internal Medicine Cardiovascular Disease | DX: Z01.810 Encounter for preprocedural cardiovascular examination (principal); I48.91 Unspecified atrial fibrillation; I25.10 Atherosclerotic heart disease of native coronary artery without angina pectoris; R06.02 Shortness of breath ==

== ENCOUNTER → 2018-03-22 | Outpatient (CLI) | payer OTHER, MEDICARE | LOC: BHFA 15:30 | PROVIDERS: ATTEND Internal Medicine Cardiovascular Disease | DX: R06.02 Shortness of breath (principal); I48.91 Unspecified atrial fibrillation ==

== ENCOUNTER → 2018-06-10 | Outpatient (CLI) | payer OTHER, MEDICARE | LOC: FIMAGING 11:53 | PROVIDERS: ATTEND Physician Assistant | DX: M79.89 Other specified soft tissue disorders (principal); M79.604 Pain in right leg; M79.605 Pain in left leg ==

== ENCOUNTER → 2018-12-26 | Outpatient (CLI) | payer OTHER, MEDICARE | LOC: BMCIMAGING 16:34 ==